=== PATIENT | male | born 1965 | race African-American/Black ===

== ENCOUNTER 2019-04-03 12:41 | Emergency (ER) | payer OTHER, MEDICAID ==
[~2019-04-03] VITALS: Ht 180.3 cm; Wt 108.9 kg
[~2019-04-03 12:41] MED LIST: AML5T PO; CAR125T PO; FURO80TA3; HYD25T PO; INSLANTI SC; METO-169 PO
[2019-04-03 14:03] LABS: Basophils # (auto) 0 uL; Basophils % (auto) 0.5 % (0.0-2.0); Eosinophils # (auto) 0.1 uL; Eosinophils % (auto) 1.2 % (0.0-7.0); Hematocrit 38.9 % (41.0-53.0); Hemoglobin 13.1 g/dL (13.5-17.5); Lymphocytes # (auto) 0.6 uL; Lymphocytes % (auto) 8.7 % (10.0-50.0); Mean Corpuscular Hemoglobin 32.6 pg (28.0-32.0); Mean Corpuscular Hgb Conc. 33.6 g/dL (32.0-36.0); Mean Corpuscular Volume 96.9 fL (80.0-100.0); Monocytes # (auto) 0.7 uL; Monocytes % (auto) 10.6 % (0.0-12.0); Neutrophils # (auto) 5.3 uL; Platelet Count (auto) 162 10^3/uL (140-450); Red Blood Cells 4.01 10^6/uL (4.5-5.90); Red Cell Distribution Width 13.7 % (11.8-14.3); White Blood Cell 6.7 10^3/uL (4.4-10.8)
[2019-04-03 14:24] LABS: Albumin 3.2 g/dL (3.4-5.0); Anion Gap 10 (5-15); Blood Urea Nitrogen 49 mg/dL (7-18); Calcium 8.8 mg/dL (8.5-10.1); Carbon Dioxide 26 mmol/L (21-32); Chloride 95 mmol/L (98-107); Glucose 175 mg/dL (74-106); Potassium 4.6 mmol/L (3.5-5.1); Sodium 131 mmol/L (136-145)
[2019-04-03 14:33] LABS: Alanine Aminotransferase 33 U/L (16-61); Alkaline Phosphatase 103 U/L (45-117); Aspartate Aminotransferase 16 U/L (15-37); BUN/Creatinine Ratio 4.2; Bilirubin, Total 0.6 mg/dL (0.2-1.0); GFR African American 6 mL/min; GFR Non-African American 5 mL/min; Total Protein 8.7 g/dL (6.4-8.2)
[2019-04-03] MEDS ORDERED: FAMOTIDINE (10MG/ML) 2ML VL IV ONE (19:30)
[2019-04-03] MEDS ORDERED: PROCHLORPERAZINE EDISYLATE 5 MG/ML 2ML VIAL IV ONE (19:30)
[2019-04-03] MEDS: SODIUM CHLORIDE 0.9% 1,000 ML IV ONE (19:39)
[2019-04-03] MEDS ORDERED: chlorproMAZINE HCL 25 MG TAB PO ONE (19:45)
[2019-04-03] MEDS ORDERED: FAMOTIDINE 20 MG TAB PO ONE (19:45)
[2019-04-03 20:40] VITALS: BP 149/91
== END 2019-04-03 23:28 | disposition left against medical advice (07) ==
LOC: ER 12:41
DX: K85.90 Acute pancreatitis without necrosis or infection, unspecified (principal); R06.6 Hiccough; I11.0 Hypertensive heart disease with heart failure; E11.9 Type 2 diabetes mellitus without complications; H54.7 Unspecified visual loss; Z99.2 Dependence on renal dialysis
CPT/HCPCS: 36415; 80053; 83690; 84484; 85025; Q0161

== ENCOUNTER 2020-03-11 18:04 | Emergency (ER) | payer OTHER, MEDICAID ==
[~2020-03-11] VITALS: Ht 185.4 cm; Wt 102.1 kg
[2020-03-11] MEDS ORDERED: SODIUM CHLORIDE 0.9% 500 ML IV ONE (18:45)
[2020-03-11 22:01] LABS: Basophils # (auto) 0 10 ^3/uL (0-0.2); Basophils % (auto) 1.1 % (0.0-2.0); Eosinophils # (auto) 0.1 10 ^3/uL (0-0.8); Eosinophils % (auto) 3.4 % (0.0-7.0); Hematocrit 41.7 % (41.0-53.0); Hemoglobin 13.8 g/dL (13.5-17.5); Lymphocytes # (auto) 0.7 10 ^3/uL (0.4-5.4); Lymphocytes % (auto) 19.9 % (10.0-50.0); Mean Corpuscular Hemoglobin 31.5 pg (28.0-32.0); Mean Corpuscular Hgb Conc. 33.1 g/dL (32.0-36.0); Mean Corpuscular Volume 95.2 fL (80.0-100.0); Monocytes # (auto) 0.3 10 ^3/uL (0-1.3); Monocytes % (auto) 7.8 % (0.0-12.0); Neutrophils # (auto) 2.4 10 ^3/uL (1.6-8.6); Neutrophils % (auto) 67.8 % (37.0-80.0); Nucleated Red Blood Cells % 0.1 %; Platelet Count (auto) 133 10^3/uL (140-450); Red Blood Cells 4.38 10^6/uL (4.5-5.90); Red Cell Distribution Width 15.2 % (11.8-14.3); White Blood Cell 3.6 10^3/uL (4.4-10.8)
[2020-03-11 22:16] LABS: Albumin 4.1 g/dL (3.4-5.0); Calcium 8.5 mg/dL (8.5-10.1); INR 2.21 (0.9-1.15); Partial Thromboplastin Time 25.4 sec (23.0-31.2); Potassium 4.6 mmol/L (3.5-5.1)
[2020-03-11 22:19] LABS: BUN/Creatinine Ratio 4.5; Bilirubin, Total 0.4 mg/dL (0.2-1.0)
[2020-03-11 22:27] VITALS: BP 114/71
== END 2020-03-11 22:48 | disposition home or self-care (01) ==
LOC: EDBD 18:04 → ER 18:07
DX: I95.9 Hypotension, unspecified (principal); E86.1 Hypovolemia; E11.22 Type 2 diabetes mellitus with diabetic chronic kidney disease; N18.6 End stage renal disease; Z99.2 Dependence on renal dialysis; Z79.899 Other long term (current) drug therapy
CPT/HCPCS: 36415; 80053; 83605; 83880; 85025; 85610; 85730; 93005; 96360; 99284; J7030

== ENCOUNTER 2020-03-31 17:38 | Emergency (ER) | payer OTHER, MEDICAID ==
[~2020-03-31] VITALS: Ht 175.3 cm; Wt 88.0 kg
[2020-03-31] MEDS ORDERED: SODIUM CHLORIDE 0.9% 1,000 ML IVB ONE (18:30)
[2020-03-31 19:01] LABS: Basophils # (auto) 0 10 ^3/uL (0-0.2); Basophils % (auto) 1.2 % (0.0-2.0); Eosinophils # (auto) 0.3 10 ^3/uL (0-0.8); Eosinophils % (auto) 7.5 % (0.0-7.0); Hematocrit 43.3 % (41.0-53.0); Hemoglobin 14.4 g/dL (13.5-17.5); Lymphocytes # (auto) 0.9 10 ^3/uL (0.4-5.4); Lymphocytes % (auto) 22.4 % (10.0-50.0); Mean Corpuscular Hemoglobin 31.6 pg (28.0-32.0); Mean Corpuscular Hgb Conc. 33.3 g/dL (32.0-36.0); Mean Corpuscular Volume 94.9 fL (80.0-100.0); Monocytes # (auto) 0.2 10 ^3/uL (0-1.3); Monocytes % (auto) 5.6 % (0.0-12.0); Neutrophils # (auto) 2.5 10 ^3/uL (1.6-8.6); Neutrophils % (auto) 63.3 % (37.0-80.0); Nucleated Red Blood Cells % 0.1 %; Platelet Count (auto) 149 10^3/uL (140-450); Red Blood Cells 4.56 10^6/uL (4.5-5.90); Red Cell Distribution Width 15.3 % (11.8-14.3)
[2020-03-31 19:17] LABS: INR 2.11 (0.9-1.15); Partial Thromboplastin Time 35.6 sec (23.0-31.2)
[2020-03-31 19:19] LABS: Anion Gap 10 (5-15); Blood Urea Nitrogen 59 mg/dL (7-18); Calcium 7.9 mg/dL (8.5-10.1); Carbon Dioxide 30 mmol/L (21-32); Chloride 93 mmol/L (98-107); Glucose 120 mg/dL (74-106); Potassium 4.1 mmol/L (3.5-5.1); Sodium 133 mmol/L (136-145)
[2020-03-31 19:24] LABS: Alanine Aminotransferase 17 U/L (16-61); Alkaline Phosphatase 97 U/L (45-117); Aspartate Aminotransferase 14 U/L (15-37); BUN/Creatinine Ratio 5.4; Bilirubin, Total 0.5 mg/dL (0.2-1.0); GFR African American 6 mL/min; GFR Non-African American 5 mL/min; Magnesium 2.8 mg/dL (1.6-2.6); Total Protein 9.3 g/dL (6.4-8.2)
[2020-04-01 04:21] VITALS: BP 127/80
== END 2020-03-31 20:42 | disposition short-term general hospital (02) ==
LOC: EDUNIT# 17:38 → EDBD 17:38 → ER 17:38
DX: R55 Syncope and collapse (principal); I95.9 Hypotension, unspecified; E87.1 Hypo-osmolality and hyponatremia; I97.821 Postprocedural cerebrovascular infarction following other surgery; E11.22 Type 2 diabetes mellitus with diabetic chronic kidney disease; I13.2 Hypertensive heart and chronic kidney disease with heart failure and with stage 5 chronic kidney disease, or end stage renal disease; I50.9 Heart failure, unspecified; N18.6 End stage renal disease; Z99.2 Dependence on renal dialysis
CPT/HCPCS: 36415; 70450; 71045; 80053; 80320; 82962; 83605; 83735; 84484; 85025; 85610; 85730; 93005; 96360; 99291; J7030; J7040